=== PATIENT | male | born 1955 | race Caucasian/White ===

== ENCOUNTER 2021-03-28 16:31 | Emergency (ER) | payer MEDICARE, MEDICAID, SELFPAY ==
--- NOTE | ~2021-03-28 | CT_ITS ---
EXAMINATION: CT ABDOMEN AND PELVIS WITH CONTRAST CLINICAL INFORMATION: History of diverticulitis. Lower abdomen tender to palpation. COMPARISON: None TECHNIQUE: Multidetector volumetric images were obtained from the superior aspect of the liver through the pubic symphysis following administration 85 mL of Omnipaque 350 intravenous contrast. Sagittal and coronal reformatted images were obtained on the technologist's workstation. Oral contrast: No This CT examination was performed using dose optimization techniques as appropriate, variously including the following: *Automated exposure control *Adjustment of mA and/or kV according to patient size (this includes techniques or standardized protocols for targeted exams where dose is matched to indication/reason for exam; i.e. extremities or head) *Use of iterative reconstruction technique DLP: 733 mGy-cm FINDINGS: LUNG BASES: Dependent atelectasis in the lung bases. LIVER, GALLBLADDER, AND BILIARY TREE: The liver is normal in size, shape, and attenuation. No intrahepatic biliary ductal dilatation. Some geographic low attenuation along the falciform most likely represents focal fatty change.. The gallbladder is unremarkable with no evidence of radiopaque gallstones, gallbladder wall thickening, or obvious pericholecystic inflammatory changes. PANCREAS: Unremarkable. SPLEEN: Unremarkable. ADRENAL GLANDS: Mild nonspecific thickening of the left adrenal gland KIDNEYS AND URETERS: The kidneys enhance symmetrically. There is a nonobstructing 6 mm calculus and a 3 mm calculus in the midpole of the right kidney. BLADDER: Unremarkable. GASTROINTESTINAL TRACT: The stomach and small bowel are unremarkable. There are acute inflammatory changes within the sigmoid colon associated with inflamed diverticula with wall thickening. No organized fluid collection or free air. No pneumatosis. The appendix is normal ABDOMINAL WALL: Small fat-containing umbilical hernia LYMPH NODES: There are a few scattered subcentimeter retroperitoneal nodes which are nonspecific. VASCULAR: Unremarkable. PELVIC VISCERA: The prostate is enlarged measuring 5.9 cm in maximal transverse diameter. OSSEOUS STRUCTURES: Unremarkable. CT/CT abdomen pelvis w con IMPRESSION: Acute sigmoid diverticulitis. No organized fluid collection or free air. Nonobstructing right-sided renal calculi measuring up to 6 mm. Enlarged prostate
[2021-03-28 16:52] VITALS: BP 121/54; PULSE 91; RESP 18; TEMP 37; O2SAT 98; BMI 33.4
--- NOTE | 2021-03-28 18:00 | ED_ITS ---
HPI - Abdominal Pain General Chief Complaint: Abdominal Pain Stated Complaint: abd pain Time Seen by Provider: 03/28/21 17:49 Source: patient Mode of arrival: ambulatory History of Present Illness HPI narrative: 65-year-old male with a past medical history of asthma, diverticulitis, HTN to the ED complaining of lower abdominal discomfort x4 days with diarrhea and constipation. Admits symptoms are similar to prior diverticulitis. Denies fever, chills, melena/bloody BMs, nausea, vomiting, dysuria/hematuria, testicular/scrotal pain/swelling MD elicited complaint: abdominal pain Related Data Previous Rx's Medication Instructions Recorded levofloxacin 750 mg PO DAILY 7 Days #7 tab 03/28/21 metoclopramide HCl [Reglan] 10 mg PO Q6H PRN #7 tab 03/28/21 metronidazole 500 mg PO Q8H 7 Days #21 tab 03/28/21 Allergies Allergy/AdvReac Type Severity Reaction Status Date / Time aspirin [ASA] Allergy Rash Verified 03/28/21 16:51 naproxen [From Aleve] Allergy Rash Verified 03/28/21 16:51 Review of Systems Review of Systems Constitutional: No Fever, No Chills Cardiovascular: No Chest Pain, No SOB Respiratory: No Cough, No Dyspnea Gastrointestinal: No Nausea, No Vomiting, +Diarrhea, + Constipation, + Abdominal pain Genitourinary: No Dysuria, No Urinary Frequency, No Hematuria, No Flank Pain, No Hesitancy Musculoskeletal: No joint pain, No Myalgias Skin: No Skin Lesions, No rash Neuro: No Weakness, No Numbness, No Headache Yes all other systems are reviewed and are negative Physical Exam Vital Signs: Vital Signs: Last Vital Signs Temp 98.1 F 03/28/21 19:51 Pulse 74 03/28/21 19:51 Resp 18 03/28/21 19:51 BP 102/65 03/28/21 19:51 Pulse Ox 97 03/28/21 19:51 Body Mass Index 33.4 Const: General: cooperative and healthy appearing Orientation/consciousness: patient oriented x3 Limitations: no limitations HENMT: Head: Yes normal to inspection Ears: hearing grossly normal bilaterally General nose exam: Normal external nose present Face and sinus: Yes normal facial exam Eyes: General: appearance normal, both eyes and all related structures EOM: EOMs intact bilaterally Neck: Neck: Yes normal visual inspection Resp: Effort & Inspection: normal respiratory effort Cardio: Rate: regular rate GI: Inspection: Yes normal to inspection Palpation (GI): Soft to palpation, Tenderness to palpation present (GI) (Lower abdomen) in the LLQ and in the RLQ, no guarding and not rigid : General: Yes no CVA tenderness Back/Spine/Pelvis: Back: no CVA tenderness Skin: Rashes: no rashes Wounds: no wounds Neuro: General: patient oriented x3 Gait exam (Neuro): Normal gait present Extrem: General: Yes normal to inspection Course Course Course Narrative: -no leukocytosis, lactic negative, labs otherwise unremarkable -UA negative CT abdomen pelvis w con IMPRESSION: Acute sigmoid diverticulitis. No organized fluid collection or free air. Nonobstructing right-sided renal calculi measuring up to 6 mm. Enlarged prostate >> results discussed with patient and family at bedside. Reports symptomatic improvement after IV medications. Tolerating p.o. without difficulty, 1st dose p.o. Levaquin and Metronidazole given in the ED. Plan to DC home with close PCP follow-up MDM - Abdominal Pain MDM Narrative Medical decision making narrative: 65-year-old male with a past medical history of asthma, diverticulitis, HTN to the ED complaining of lower abdominal discomfort x4 days with diarrhea and constipation. On exam VSS, NAD, well appearing, abdomen soft with lower abdominal ttp >LLQ, no rebound or guarding, no CVAT. Concern for diverticulitis vs appendicitis vs UTI. Lower concern for renal stone, cholecystitis/lithiasis or pancreatitis. Unlikely testicular torsion/epididymitis orchitis Plan: Labs, UA, CT AP, IVF, reassess Lab Data Result diagrams: 03/28/21 18:10 03/28/21 18:10 Labs: Lab Results 03/28/21 03/28/21 03/28/21 Range/Units 18:10 18:10 18:10 WBC 9.9 (4.8-10.8) X10*3/uL RBC 4.50 L (4.60-5.80) X10*6/uL Hgb 14.4 (14.0-18.0) g/dl Hct 43.0 (42-52) % MCV 95.6 (80-98) fL MCH 32.0 (27.0-33.0) pg MCHC 33.5 (31.0-36.0) g/dl RDW 13.1 (11.0-16.0) % Plt Count 306 (160-400) X10*3/uL MPV 9.0 L (9.4-12.4) fL Immature Gran % (Auto) 0.4 (0.0-0.4) % Neut % (Auto) 59.7 (45-73) % Lymph % (Auto) 27.4 (20-40) % [place] % (Auto) 11.0 (2-11) % Eos % (Auto) 1.2 (0-4) % Baso % (Auto) 0.3 (0-2) % Lymph # (Auto) 2.7 (1.2-4.9) X10*3/uL [place] # (Auto) 1.1 (0.1-1.2) X10*3/uL Eos # (Auto) 0.1 (0.0-0.4) X10*3/uL Baso # (Auto) 0.0 (0.0-0.2) X10*3/uL Abs Immat Gran (auto) 0.04 H (0.00-0.03) X10*3/uL Absolute Neuts (auto) 5.9 (2.0-8.3) X10*3/uL Absolute Nucleated RBC 0.000 (0.0-0.012) X10*3/uL Nucleated RBC % (auto) 0.0 (0.0-0.2) /100WBC PT 16.4 H (10.8-13.0) SEC INR 1.4 H (0.9-1.1) APTT 33.6 (24.1-38.0) SEC Sodium 139 (135-145) mmol/L Potassium 3.9 (3.3-5.1) mmol/L Chloride 102 (96-108) mmol/L Carbon Dioxide 29 (22-29) mmol/L Anion Gap 12 (12-20) BUN 17 H (9-16) mg/dL Creatinine 0.87 (0.5-1.4) mg/dL Estim Creat Clear Calc 88.3 Estimated GFR > 60 Random Glucose 115 (60-115) mg/dL Lactic Acid (0.5-2.0) mmol/L Calcium 9.4 (8.4-10.2) mg/dL Magnesium 2.4 (1.6-2.6) mg/dL Total Bilirubin 0.4 (0.0-1.0) mg/dL Direct Bilirubin 0.2 (0.0-0.5) mg/dL AST 11 (5-37) U/L ALT 14 (0-40) U/L Alkaline Phosphatase 74 (39-117) U/L Total Protein 7.8 (6.5-8.0) g/dL Albumin 4.2 (3.5-5.0) g/dL Lipase 23 (8-78) U/L Urine Color Urine Appearance Urine pH (5.0-8.0) Ur Specific [place] (1.005-1.025) Urine Protein (NEG-TRACE) MG/DL Urine Glucose (UA) (NEG) MG/DL Urine Ketones (NEG) MG/DL Urine Blood (NEG) Urine Nitrite (NEG) Ur Leukocyte Esterase (NEG) Urine RBC (0) /HPF Urine WBC (0-4) /HPF Ur Squamous Epith Cells /LPF Urine Bacteria /LPF 03/28/21 03/28/21 Range/Units 18:10 18:10 WBC (4.8-10.8) X10*3/uL RBC (4.60-5.80) X10*6/uL Hgb (14.0-18.0) g/dl Hct (42-52) % MCV (80-98) fL MCH (27.0-33.0) pg MCHC (31.0-36.0) g/dl RDW (11.0-16.0) % Plt Count (160-400) X10*3/uL MPV (9.4-12.4) fL Immature Gran % (Auto) (0.0-0.4) % Neut % (Auto) (45-73) % Lymph % (Auto) (20-40) % [place] % (Auto) (2-11) % Eos % (Auto) (0-4) % Baso % (Auto) (0-2) % Lymph # (Auto) (1.2-4.9) X10*3/uL [place] # (Auto) (0.1-1.2) X10*3/uL Eos # (Auto) (0.0-0.4) X10*3/uL Baso # (Auto) (0.0-0.2) X10*3/uL Abs Immat Gran (auto) (0.00-0.03) X10*3/uL Absolute Neuts (auto) (2.0-8.3) X10*3/uL Absolute Nucleated RBC (0.0-0.012) X10*3/uL Nucleated RBC % (auto) (0.0-0.2) /100WBC PT (10.8-13.0) SEC INR (0.9-1.1) APTT (24.1-38.0) SEC Sodium (135-145) mmol/L Potassium (3.3-5.1) mmol/L Chloride (96-108) mmol/L Carbon Dioxide (22-29) mmol/L Anion Gap (12-20) BUN (9-16) mg/dL Creatinine (0.5-1.4) mg/dL Estim Creat Clear Calc Estimated GFR Random Glucose (60-115) mg/dL Lactic Acid 0.7 (0.5-2.0) mmol/L Calcium (8.4-10.2) mg/dL Magnesium (1.6-2.6) mg/dL Total Bilirubin (0.0-1.0) mg/dL Direct Bilirubin (0.0-0.5) mg/dL AST (5-37) U/L ALT (0-40) U/L Alkaline Phosphatase (39-117) U/L Total Protein (6.5-8.0) g/dL Albumin (3.5-5.0) g/dL Lipase (8-78) U/L Urine Color YELLOW Urine Appearance CLEAR Urine pH 5.5 (5.0-8.0) Ur Specific [place] 1.025 (1.005-1.025) Urine Protein NEG (NEG-TRACE) MG/DL Urine Glucose (UA) NEG (NEG) MG/DL Urine Ketones NEG (NEG) MG/DL Urine Blood 1+ H (NEG) Urine Nitrite NEG (NEG) Ur Leukocyte Esterase NEG (NEG) Urine RBC 0 (0) /HPF Urine WBC 0 (0-4) /HPF Ur Squamous Epith Cells NONE /LPF Urine Bacteria NONE /LPF Discharge Plan Discharge Clinical Impression: Diverticulitis Patient Disposition: Home, Self-Care Instructions: Diverticulitis (ED), Diverticulitis Diet (ED) Additional Instructions: You have diverticulitis. Levaquin and metronidazole are antibiotics, take as prescribed. Practice a clear liquid diet for the next 24 hours. Make sure your in taking plenty of fluids. Follow up with her doctor. If her pain persists or worsens, becomes unbearable, you are unable to eat or drink, or have persistent nausea/vomiting return to the ED Reglan as antinausea medication, take as needed Tiene diverticulitis. Levaquin y metronidazol son antibi?ticos, t?melos seg?n lo prescrito. Practique ag dieta de l?quidos azra jabari las pr?ximas 24 horas. Aseg?rese de karina muchos l?quidos. Edilia un seguimiento con regalado m?dico. Si regalado dolor persiste o empeora, se vuelve insoportable, no puede comer ni beber, o tiene n?useas / v?mitos persistentes, regrese al servicio de urgencias Reglan luis medicamento contra las n?useas, t?almendarez seg?n sea necesario Prescriptions: New levofloxacin 750 mg tablet 750 mg PO DAILY 7 Days Qty: 7 RF: 0 metronidazole 500 mg tablet 500 mg PO Q8H 7 Days Qty: 21 RF: 0 metoclopramide HCl [Reglan] 10 mg tablet 10 mg PO Q6H PRN (Reason: nausea and vomiting) Qty: 7 RF: 0 Referrals: Physician,Unknown [Primary Care Provider] - 2 days Print Language: [place]ar[place]uan REPLACED BY [facility] Past Medical History Attestation statement: The following information was validated with the patient. Medical History (Updated 03/28/21 @ 20:12 by AVERY Stearns) Asthma Diverticulitis HTN (hypertension) Social History Social History Alcohol intake: never Smoking Status: Never smoker Use of substances other than those prescribed or required for medical reasons: No Advance Directives: No Advance Directives Information Provided: No
[2021-03-28] MEDS: 0.9 % Sodium Chloride 1,000 ML 999 ML IVCONT (18:13)
[2021-03-28 18:18] LABS: MANUAL DIFF FLAG NO
[2021-03-28 18:25] LABS: Glucose Urine UA NEG (NEG); INTERNATIONAL NORM RATIO 1.4 (0.9-1.1); Leukocyte Esterase Urine NEG (NEG); Nitrite Urine NEG (NEG); PH 5.5 (5.0-8.0); Prothrombin Time 16.4 SEC (10.8-13.0); Specific Gravity - Urine 1.025 (1.005-1.025); Urine Blood 1+ (NEG); Urine Ketones NEG (NEG); Urine Protein NEG (NEG-TRACE)
[2021-03-28 18:26] LABS: Basophils Percent Auto 0.3 % (0-2); Color Urine YELLOW; Eosinophils Absolute Auto 0.1 X10*3/uL (0.0-0.4); Eosinophils Percent Auto 1.2 % (0-4); Hemoglobin 14.4 g/dl (14.0-18.0); Imm Gran Abs Auto 0.04 X10*3/uL (0.00-0.03); Imm Gran Pct Auto 0.4 % (0.0-0.4); Lymphocytes Absolute Auto 2.7 X10*3/uL (1.2-4.9); Lymphocytes Percent Auto 27.4 % (20-40); Mean Corpuscular HGB Conc 33.5 g/dl (31.0-36.0); Mean Corpuscular Volume 95.6 fL (80-98); Monocytes Absolute Auto 1.1 X10*3/uL (0.1-1.2); Neutrophils Absolute Auto 5.9 X10*3/uL (2.0-8.3); Neutrophils Percent Auto 59.7 % (45-73); Platelet Count 306 X10*3/uL (160-400); Red Cell Distribution Width 13.1 % (11.0-16.0); White Blood Count 9.9 X10*3/uL (4.8-10.8)
[2021-03-28] MEDS: ondansetron HCL 4 MG/2 ML VIAL IVPUSH (18:26)
[2021-03-28] MEDS: Acetaminophen 325 MG TABLET 650 MG PO (18:26)
[2021-03-28 18:27] VITALS: RESP 16
[2021-03-28 18:27] LABS: Appearance Urine CLEAR
[2021-03-28] MEDS: Morphine Sulfate 2 MG/ML CARTRIDGE IVPUSH (18:27)
[2021-03-28 18:28] LABS: Partial Thromboplastin Time 33.6 SEC (24.1-38.0)
[2021-03-28 18:32] LABS: RBC Urine 0 /HPF (0); WBC Urine 0 /HPF (0-4)
[2021-03-28 18:43] LABS: Lactic Acid 0.7 mmol/L (0.5-2.0)
[2021-03-28 18:49] LABS: Alanine Aminotransferase 14 U/L (0-40); Albumin Level 4.2 g/dL (3.5-5.0); Alkaline Phosphatase 74 U/L (39-117); Anion Gap 12 (12-20); Aspartate Amino Transferase 11 U/L (5-37); Bilirubin Direct 0.2 mg/dL (0.0-0.5); Bilirubin Total 0.4 mg/dL (0.0-1.0); Blood Urea Nitrogen 17 mg/dL (9-16); Calcium 9.4 mg/dL (8.4-10.2); Carbon Dioxide 29 mmol/L (22-29); Chloride 102 mmol/L (96-108); Creatinine Clr Calc Pharmacy 88.3; Estimated Glomerular Filt Rate > 60; Glucose Random 115 mg/dL (60-115); Lipase 23 U/L (8-78); Magnesium 2.4 mg/dL (1.6-2.6); Potassium 3.9 mmol/L (3.3-5.1); Sodium 139 mmol/L (135-145); Total Protein 7.8 g/dL (6.5-8.0)
[2021-03-28] MEDS: iohexoL 350 MG/ML 100 ML INFUS..BTL IV (19:39)
[2021-03-28 19:51] VITALS: BP 102/65; PULSE 74; RESP 18; TEMP 36.7; O2SAT 97
[2021-03-28] MEDS: metroNIDAZOLE 500 MG TABLET PO (20:20)
[2021-03-28] MEDS: levoFLOXacin 750 MG TABLET PO (20:20)
== END 2021-03-28 20:27 | disposition home or self-care (01) ==
PROVIDERS: Physician Assistant; Emergency Provider Internal Medicine
DX: K57.32 Diverticulitis of large intestine without perforation or abscess without bleeding (principal); I10 Essential (primary) hypertension; J45.909 Unspecified asthma, uncomplicated
CPT/HCPCS: 36415; 74177; 80048; 80076; 81001; 83605; 83690; 83735; 85025; 85610; 85730; 96361; 96374; 96375; 99284; J2270; J2405; Q9967

== ENCOUNTER 2022-01-10 10:17 | Outpatient (REF) | payer MEDICARE, MEDICAID, SELFPAY ==
--- NOTE | ~2022-01-10 | MR_ITS ---
EXAMINATION: MRI OF THE BRAIN WITHOUT CONTRAST CLINICAL INFORMATION: Memory loss and cognitive impairment. COMPARISON: There are no prior studies available comparison. TECHNIQUE: MRI of the brain was obtained using routine sequences without contrast. FINDINGS: No diffusion abnormalities are identified to suggest an acute or subacute infarct. No mass effect or midline shift is seen. There is mild commensurate prominence of the ventricles and sulci. There are a few scattered foci of hyperintense T2 and FLAIR signal in the white matter, which are most consistent with mild chronic microvascular ischemic changes. No extra-axial fluid collections are seen. The brainstem and cerebellum are normal. No pathologic magnetic susceptibility artifact is identified on the gradient refocused acquisition. The craniovertebral junction and marrow signal are normal. There is a partially empty sella. The major intracranial flow-voids at the level of the [place] are preserved. The dural venous sinus flow-voids are maintained. There are multiple small lymph nodes in the parotid glands. The mastoid air cells are well-aerated. There is a fluid level in the left sphenoid sinus. There is mild mucoperiosteal thickening in the inferior left maxillary sinus and there is opacification in the left middle meatus, bilateral anterior ethmoid air cells and bilateral frontal sinuses. MR/MR head/brain wo con IMPRESSION: 1. There are no acute bleeds or territorial infarcts. No masses are demonstrated. 2. There are chronic microvascular ischemic changes and there is diffuse volume loss. 3. There is opacification of multiple paranasal sinuses, with a fluid level in the left sphenoid sinus.
== END 2022-01-10 10:18 | disposition home or self-care (01) ==
LOC: HO.MRI 10:17
PROVIDERS: Visit Provider Psychiatry & Neurology Neurology
DX: G30.9 Alzheimer's disease, unspecified (principal)
CPT/HCPCS: 70551

== ENCOUNTER 2023-01-08 11:47 | Outpatient (REF) | payer MEDICARE, MEDICAID, SELFPAY ==
[2023-01-08 13:19] LABS: Vitamin B12 355 pg/mL (200-900)
== END 2023-01-08 11:48 | disposition home or self-care (01) ==
LOC: HO.LAB 11:47
PROVIDERS: PCP Internal Medicine; Visit Provider Psychiatry & Neurology Neurology
DX: G30.9 Alzheimer's disease, unspecified (principal)
CPT/HCPCS: 36415; 82607

== ENCOUNTER 2024-06-08 23:11 | Emergency (ER) | payer MEDICARE, MEDICAID, SELFPAY ==
--- NOTE | ~2024-06-08 | CT_ITS ---
EXAMINATION: CT ABDOMEN AND PELVIS WITHOUT CONTRAST CLINICAL INFORMATION: Right flank pain. COMPARISON: 03/28/2021 TECHNIQUE: Multidetector volumetric imaging was performed from the superior aspect of the liver through the pubic symphysis. Sagittal and coronal reformatted images were obtained on the technologist's workstation. This CT examination was performed using dose optimization techniques as appropriate, variously including the following: *Automated exposure control *Adjustment of mA and/or kV according to patient size (this includes techniques or standardized protocols for targeted exams where dose is matched to indication/reason for exam; i.e. extremities or head) *Use of iterative reconstruction technique DLP: 1084 mGy-cm FINDINGS: LUNG BASES: The visualized lung bases are unremarkable. LIVER, GALLBLADDER, AND BILIARY TREE: The liver is of diminished attenuation. No focal liver lesions are seen. There is no intrahepatic biliary duct dilatation. The gallbladder is unremarkable with no evidence of radiopaque gallstones, gallbladder wall thickening, or obvious pericholecystic inflammatory changes. PANCREAS: Unremarkable. SPLEEN: Unremarkable. ADRENAL GLANDS: There is bilateral adrenal gland thickening and nodularity. KIDNEYS AND URETERS: The kidneys are normal in size, shape, and attenuation. There are scattered bilateral renal calculi measuring up to 7 mm upper pole right kidney. There is mild right hydronephrosis and proximal right hydroureter to the level of a 5 mm proximal right ureteric calculus. BLADDER: Unremarkable. GASTROINTESTINAL TRACT: There is diffuse diverticulosis without evidence for diverticulitis. The appendix is visualized and is within normal limits. ABDOMINAL WALL: There is a small umbilical hernia containing fat. LYMPH NODES: Normal. VASCULAR: Unremarkable. PELVIC VISCERA: Prostate gland hypertrophy. OSSEOUS STRUCTURES: Unremarkable. CT/CT abdomen pelvis wo IV con IMPRESSION: 1. Mild right hydronephrosis and proximal right hydroureter to the level of a 5 mm proximal right ureteric calculus. 2. Bilateral nephrolithiasis. 3. Diverticulosis without evidence of diverticulitis. 4. Hepatic steatosis. 5. Bilateral adrenal gland thickening and nodularity. Fleischner guidelines were followed.
[2024-06-08 23:24] VITALS: BP 135/70; PULSE 86; RESP 16; TEMP 36.9; O2SAT 95; BMI 37.3
[2024-06-08 23:46] LABS: Appearance Urine Clear; Color Urine Yellow; Glucose Urine UA Negative (Negative); Leukocyte Esterase Urine Negative (Negative); Nitrite Urine Negative (Negative); PH 5.5 (5.0-9.0); Specific Gravity - Urine 1.015 (1.005-1.025); UMIC TRIGGER UACC YES; Urine Blood Small (1+) (Negative); Urine Ketones Negative (Negative); Urine Protein Negative (Neg-Trace)
--- NOTE | 2024-06-08 23:48 | ED.ABDPAIN ---
HPI - Abdominal Pain General Chief Complaint: Abdominal Pain Stated Complaint: Kidney Pain Time Seen by Provider: 06/08/24 23:47 Source: patient and old records reviewed Mode of arrival: ambulatory Limitations: no limitations History of Present Illness ED Provider: NOE BOOTHE narrative: 69 yo male with PMH of HTN, asthma, diverticulitis presents with c/o 2 days of R flank pain radiating to R groin with nausea but no vomiting. Denies diarrhea or dysuria - tried motrin but no relief. Has not had fever. Has remote hx of stones. MD elicited complaint: flank pain Pertinent past history: kidney stones Onset (ago): day(s) (2) Pain Consistency: intermittent Location: R flank Severity: moderate Quality: stabbing Radiation: none Migration to: no migration Exacerbating factors: nothing Relieving factors: nothing Context: history of similar episodes Associated symptoms: nausea Treatments prior to arrival: NSAIDs Related Data Previous Rx's ?Medication ?Instructions ?Recorded levofloxacin 750 mg tablet 750 mg PO DAILY 7 days #7 tabs 03/28/21 metoclopramide HCl 10 mg tablet 10 mg PO Q6H PRN nausea and 03/28/21 (Reglan) vomiting #7 tabs metronidazole 500 mg tablet 500 mg PO Q8H 7 days #21 tabs 03/28/21 ondansetron 4 mg disintegrating 4 mg PO Q8H PRN nausea and 06/09/24 tablet vomiting #20 tabs oxycodone 10 mg tablet 10 mg PO Q6H PRN pain #14 tabs 06/09/24 prednisone 20 mg tablet 20 mg PO DAILY 3 days #3 tabs 06/09/24 tamsulosin 0.4 mg capsule 0.4 mg PO DAILY 7 days #7 caps 06/09/24 Allergies Allergy/AdvReac Type Severity Reaction Status Date / Time aspirin [ASA] Allergy Rash Verified 06/08/24 23:27 naproxen [From Aleve] Allergy Rash Verified 06/08/24 23:27 Review of Systems Review of Systems Constitutional : No Weight loss, No Fever, No Chills ENT/Mouth : No sore throat, No Rhinorrhea Eyes: No Swelling, No Redness Cardiovascular : No Chest Pain, No SOB, NoEdema Respiratory : No Cough, No Sputum, No Wheezing Gastrointestinal : Positive Nausea, no Vomiting, no Diarrhea, positive abdominal Pain, No Hematochezia, No Melena Genitourinary : No Dysuria, No Urinary Frequency, No Hematuria, No Urgency Musculoskeletal : No joint pain, No Myalgias, No Joint Swelling Skin : No Skin Lesions, No rash Neuro : No Weakness, No Numbness, No Dizziness, No Headache Psych : No Anxiety/Panic, No Depression All other systems reviewed and are negative. [facility] Past Medical History Attestation statement: The following information was validated with the patient. Source: old records reviewed Medical History Asthma HTN (hypertension) Diverticulitis Social History Social History (Updated 06/08/24 @ 23:48 by Julia Keen DO) Alcohol intake: never Patient Tobacco Use Status: Tobacco use Unknown Smoked in Last 30 Days: No Use of substances other than those prescribed or required for medical reasons: No Advance Directives: No Advance Directives Information Provided: Yes Physical Exam ED Vital Signs: Vital Signs - 24 hr 06/08/24 23:24 06/09/24 02:24 Temperature 98.4 F 98.1 F Pulse Rate 86 78 Respiratory Rate 16 16 Blood Pressure 135/70 133/66 Pulse Oximetry 95 97 Oxygen Delivery Method Room Air Room Air BMI result Body Mass Index 37.3 Appearance: Alert. Oriented X3. No acute distress. Eyes: Pupils equal, round and reactive to light. ENT: Pharynx normal. Neck: Normal inspection. Neck supple. CVS: Normal heart rate and rhythm. Pulses normal. Respiratory: No respiratory distress. Breath sounds normal. Abdomen: Soft and non-tender. Mild R CVA ttp Skin: Skin warm and dry. Normal skin color. Extremities: No lower extremity edema. Neuro: Oriented X 3. No motor deficit. No sensory deficit. Course Course Course Narrative: still in pain IV dilaudid ordered Medical Decision Making Medical Decision Making [facility] Narrative: 69 yo male with PMH of HTN, asthma, diverticulitis presents with c/o R flank pain and nausea has remote hx of stones denies vomiting, fevers, diarrhea at this time labs, CT scan, PO morphine for pain Differential Diagnosis Differential Diagnoses: The differential diagnosis associated with the presentation includes UTI, stones, MSK pain Admission/Observation Consideration of admission/observation: Escalation of care including admission/observation considered pain improved he feels better he and asking to go home Cr normal no vomiting no UTI will start on meds and refer to urology Lab Data MDM Lab Attestation statement: I reviewed the patient's lab results. 06/08/24 23:57 06/08/24 23:57 Labs: Lab Results 06/08/24 06/08/24 Range/Units 23:33 23:57 WBC 11.7 H (4.8-10.8) X10*3/uL RBC 4.45 L (4.60-5.80) X10*6/uL Hgb 14.4 (14.0-18.0) g/dl Hct 42.0 (42.0-52.0) % MCV 94.4 (80.0-98.0) fL MCH 32.4 (27.0-33.0) pg MCHC 34.3 (31.0-36.0) g/dl RDW 13.2 (11.0-16.0) % Plt Count 266 (160-400) X10*3/uL MPV 8.9 L (9.4-12.4) fL Immature Gran % (Auto) 0.3 (0.0-0.4) % Neut % (Auto) 66.0 (45-73) % Lymph % (Auto) 22.8 (20-40) % [place] % (Auto) 9.2 (2-11) % Eos % (Auto) 1.4 (0-4) % Baso % (Auto) 0.3 (0-2) % Lymph # (Auto) 2.7 (1.2-4.9) X10*3/uL [place] # (Auto) 1.1 (0.1-1.2) X10*3/uL Eos # (Auto) 0.2 (0.0-0.4) X10*3/uL Baso # (Auto) 0.0 (0.0-0.2) X10*3/uL Abs Immat Gran (auto) 0.03 (0.00-0.03) X10*3/uL Absolute Neuts (auto) 7.8 (2.0-8.3) x10*3/uL Absolute Nucleated RBC 0.000 (0.0-0.012) X10*3/uL Nucleated RBC % (auto) 0.0 (0.0-0.2) /100WBC Sodium 138 (135-145) mmol/L Potassium 4.5 (3.3-5.1) mmol/L Chloride 106 (96-108) mmol/L Carbon Dioxide 20 L (22-29) mmol/L Anion Gap 17 (12-20) BUN 26 H (9-16) mg/dL Creatinine 1.32 (0.5-1.4) mg/dL Estim Creat Clear Calc 62.0 Estimated GFR 53 Random Glucose 139 H (60-115) mg/dL Calcium 10.2 D (8.4-10.2) mg/dL Total Bilirubin 0.3 (0.0-1.0) mg/dL AST 18 (5-37) U/L ALT 25 (0-40) U/L Alkaline Phosphatase 71 (39-117) U/L Total Protein 7.7 (6.5-8.0) g/dL Albumin 4.1 (3.5-5.0) g/dL Urine Color Yellow Urine Appearance Clear Urine pH 5.5 (5.0-9.0) Ur Specific [place] 1.015 (1.005-1.025) Urine Protein Negative (Neg-Trace) mg/dL Urine Glucose (UA) Negative (Negative) mg/dL Urine Ketones Negative (Negative) mg/dL Urine Blood Small (1+) H (Negative) Urine Nitrite Negative (Negative) Ur Leukocyte Esterase Negative (Negative) Urine RBC 0-2 (0-2) /HPF Urine WBC 0-5 (0-5) /HPF Ur Squamous Epith Cells 0-2 (0-2) /HPF Urine Bacteria None Seen (None Seen) Hyaline Casts 0-2 (0-2) /LPF Independent Interpretation I performed an independent interpretation of an: CT Scan (mild hydro 5mm prox stone) Radiology Impression Discussion of test interpretation with radiology: I have reviewed the radiologist's reading. Independent Historian Clinical information obtained from an independent historian. History obtained from or confirmed by: Spouse External Record Review External record reviewed: Inpatient record Prescription Management I considered prescription management with: Pain Medication and Other Medications Administered Discontinued Medications Generic Name Dose Route Start Last Admin Trade Name Freq PRN Reason Stop Dose Admin Hydromorphone HCl 1 mg 06/09/24 02:20 06/09/24 02:43 Hydromorphone Hcl 1 Mg/Ml Syringe IVPUSH 07/22/24 02:21 1 mg ONCE ONE Administration Protocol Morphine Sulfate 15 mg 06/08/24 23:52 06/09/24 00:08 Morphine Sulfate Immed Release 15 Mg Tablet PO 06/08/24 23:53 15 mg ONCE ONE Administration Ondansetron HCl 4 mg 06/08/24 23:52 06/09/24 00:08 Ondansetron Odt 4 Mg Tab.Yendis TRANSLINGU 06/08/24 23:53 4 mg ONCE ONE Administration Critical Care Time Critical Care Time Critical Care Time: Yes Total Critical Care Time: 35 Attestation: pain improved with IV morphine, patient is feeling better I attest to this time spent taking care of the patient Discharge Plan Discharge Clinical Impression: Ureterolithiasis Patient Disposition: Home, Self-Care Instructions: Ureteral Stones (ED) Additional Instructions: return for worsening pain, fevers, vomiting, inability to urinate or any other concerns follow up and call the Urologist listed below to schedule appointment in case you do not pass this Prescriptions: New prednisone 20 mg tablet 20 mg PO DAILY 3 Days Qty: 3 0RF tamsulosin 0.4 mg capsule 0.4 mg PO DAILY 7 Days Qty: 7 0RF ondansetron 4 mg tablet,disintegrating 4 mg PO Q8H PRN (Reason: nausea and vomiting) Qty: 20 0RF oxycodone 10 mg tablet 10 mg PO Q6H PRN (Reason: pain) Qty: 14 0RF Rx Instructions: Partial Fill upon patient request. No Action levofloxacin 750 mg tablet 750 mg PO DAILY 7 Days Qty: 7 0RF metronidazole 500 mg tablet 500 mg PO Q8H 7 Days Qty: 21 0RF metoclopramide HCl [Reglan] 10 mg tablet 10 mg PO Q6H PRN (Reason: nausea and vomiting) Qty: 7 0RF Referrals: Eloise Christine MD [Physician] - Print Language: R[place]
[2024-06-09] LABS: Bacteria Urine None Seen (None Seen); Hyaline Casts Urine 0-2 /LPF (0-2); RBC Urine 0-2 /HPF (0-2); Squamous Epithelial Cell Urine 0-2 /HPF (0-2); WBC Urine 0-5 /HPF (0-5)
[2024-06-09 00:02] LABS: Basophils Percent Auto 0.3 % (0-2); Eosinophils Absolute Auto 0.2 X10*3/uL (0.0-0.4); Eosinophils Percent Auto 1.4 % (0-4); Hemoglobin 14.4 g/dl (14.0-18.0); Imm Gran Abs Auto 0.03 X10*3/uL (0.00-0.03); Imm Gran Pct Auto 0.3 % (0.0-0.4); Lymphocytes Absolute Auto 2.7 X10*3/uL (1.2-4.9); Lymphocytes Percent Auto 22.8 % (20-40); MANUAL DIFF FLAG NO; Mean Corpuscular HGB Conc 34.3 g/dl (31.0-36.0); Mean Corpuscular Hemoglobin 32.4 pg (27.0-33.0); Mean Corpuscular Volume 94.4 fL (80.0-98.0); Mean Platelet Volume 8.9 fL (9.4-12.4); Monocytes Absolute Auto 1.1 X10*3/uL (0.1-1.2); Monocytes Percent Auto 9.2 % (2-11); Neutrophils Absolute Auto 7.8 x10*3/uL (2.0-8.3); Platelet Count 266 X10*3/uL (160-400); Red Blood Count 4.45 X10*6/uL (4.60-5.80); Red Cell Distribution Width 13.2 % (11.0-16.0); White Blood Count 11.7 X10*3/uL (4.8-10.8)
[2024-06-09] MEDS: Morphine Sulfate Immed Release 15 MG TABLET PO (00:08)
[2024-06-09] MEDS: Ondansetron ODT 4 MG TAB.RAPDIS TRANSLINGU (00:08)
[2024-06-09 00:19] LABS: Alanine Aminotransferase 25 U/L (0-40); Albumin Level 4.1 g/dL (3.5-5.0); Alkaline Phosphatase 71 U/L (39-117); Anion Gap 17 (12-20); Aspartate Amino Transferase 18 U/L (5-37); Bilirubin Total 0.3 mg/dL (0.0-1.0); Blood Urea Nitrogen 26 mg/dL (9-16); Calcium 10.2 mg/dL (8.4-10.2); Carbon Dioxide 20 mmol/L (22-29); Chloride 106 mmol/L (96-108); Estimated Glomerular Filt Rate 53; Glucose Random 139 mg/dL (60-115); Potassium 4.5 mmol/L (3.3-5.1); Sodium 138 mmol/L (135-145); Total Protein 7.7 g/dL (6.5-8.0)
[2024-06-09 02:24] VITALS: BP 133/66; PULSE 78; RESP 16; TEMP 36.7; O2SAT 97
[2024-06-09] MEDS: HYDROmorphone HCl 1 MG/ML SYRINGE IVPUSH (02:43)
[2024-06-09] MEDS: Tamsulosin HCL 0.4 MG CAPSULE PO (03:21)
[2024-06-09 03:26] VITALS: BP 128/62; PULSE 72; RESP 16; TEMP 36.7; O2SAT 97
== END 2024-06-09 03:28 | disposition home or self-care (01) ==
PROVIDERS: Emergency Provider Emergency Medicine; PCP Internal Medicine
DX: N20.1 Calculus of ureter (principal); R30.0 Dysuria; Z79.899 Other long term (current) drug therapy
CPT/HCPCS: 36415; 74176; 80053; 81001; 85025; 99284; J1170

== ENCOUNTER 2024-07-24 15:27 | Outpatient (AMB) | payer OTHER, MEDICAID, SELFPAY ==
--- NOTE | 2024-07-24 15:29 | A.OFFVIS_ITS ---
Intake Visit Reasons: bilateral nephrolithiasis Intake Note: New Patient presents for initial visit for nephrolithiasis Urology Medications: none Blood Thinner:none Sander Wooden Pencils Required: Yes Accompanied by: Unknown Allergies aspirin [ASA] Allergy (Verified 07/24/24 16:00) Rash naproxen [From Aleve] Allergy (Verified 07/24/24 16:00) Rash Medication List - Last Reconciled 07/24/24 by MAX Faust lisinopril 10 mg PO DAILY sertraline 25 mg PO DAILY HPI Comments Details: Sherman is a very pleasant 69-year-old Macedonian-speaking male patient of Dr. Mcfadden who was accompanied by his at today's office visit. He has a past medical history of asthma, hypertension, and diverticulitis. kami presents to the office today as a new patient for nephrolithiasis. In discussion with the patient today reports having seeked emergency room care in May for ongoing righ t-sided flank pain he had been experiencing at which time a CT of the abdomen was ordered and performed. These results reviewed with the patient today. The kidneys are normal in size, shape, and attenuation. There are scattered bilateral renal calculi measuring up to 7 mm in the upper pole of the right kidney. There is mild right hydro nephrosis and proximal right hydroureter to the level of 5 mm proximal right ureteric calculus. The bladder is unremarkable. In discussion with the patient today he reports flank pain he had been experiencing has since subsided. He believes passing his stone as he did see fragments when urinating however he did not collect stone for stone analysis. He does report a longstanding history of nephrolithiasis since he was a teenager. However, never requiring surgical intervention. We discussed at length potential causes of nephrolithiasis. Discussed further metabolic workup to include 24 hour urine collection and labs. In office urinalysis results reviewed with the patient today. He otherwise denies urinary urgency, urinary frequency, incontinence, nocturia, hematuria, dysuria, foul smelling urine, changes to urinary stream, flank pain, fever, and or chills. He is happy with his current voiding parameters. [facility] Medical History Asthma HTN (hypertension) Diverticulitis Social History Alcohol intake: never Patient Tobacco Use Status: Tobacco use Unknown Review of Systems Const All systems reviewed & are unremarkable except as noted in HPI and below Physical Exam Const General: cooperative, comfortable, no acute distress, well developed, alert and awake Orientation/consciousness: patient oriented x3 HEENT Head: Yes normal to inspection, Yes normocephalic and Yes atraumatic Ears: hearing grossly normal bilaterally Eyes General: appearance normal, both eyes and all related structures Neck Neck: Yes normal visual inspection and Yes trachea midline Chest Chest palpation & inspection: normal inspection of the chest Resp Effort & Inspection: normal respiratory effort and able to speak in complete sentences Cardio Rate: regular rate GI Inspection: Yes normal to inspection General: Yes no CVA tenderness Back/Spine/Pelvis Back: no CVA tenderness Skin General skin exam: no rashes or lesions noted Neuro General: patient oriented x3 Extrem General: Yes normal to inspection Psych Appearance: grossly normal and well kempt Mental Status: mental status grossly normal Speech and movement: Normal speech and movement present and Clear speech present Affect: normal affect Attitude: cooperative Thought process: Normal thought process present Thought content: Normal thought content present Insight: Fair insight present (Psych) Judgement: Fair judgement present (Psych) Results AMB Urinalysis, Automated UA Leukoctes 0 Tomás/uL Last Edit by [employer] on 07/24/24 15:49 UA Nitrite Last Edit by [employer] on 07/24/24 15:49 UA Urobilinogen 0.2 mg/dL Last Edit by [employer] on 07/24/24 15:49 UA Protein 0 mg/dL Last Edit by [employer] on 07/24/24 15:49 UA pH 6.0 Last Edit by [employer] on 07/24/24 15:49 UA Blood 0 Jose/uL Last Edit by [employer] on 07/24/24 15:49 UA Specific [place] 1.025 Last Edit by [employer] on 07/24/24 15:49 UA Ketone Negative Last Edit by [employer] on 07/24/24 15:49 UA Bilirubin 0 mg/dL Last Edit by [employer] on 07/24/24 15:49 UA Glucose 0 mg/dL Last Edit by [employer] on 07/24/24 15:49 Results Reviewed Results Reviewed: Laboratory Last Values Urine pH (Auto) 6.0 07/24/24 15:40 Specific [place] (Auto) 1.025 07/24/24 15:40 Urine Protein (Auto) 0 mg/dL 07/24/24 15:40 Glucose (UA)(Auto) 0 mg/dL 07/24/24 15:40 Urine Ketones (Auto) Negative 07/24/24 15:40 Urine Blood (Auto) 0 Jose/uL 07/24/24 15:40 Urine Bilirubin (Auto) 0 mg/dL 07/24/24 15:40 Urine Urobilinogen (Auto) 0.2 mg/dL 07/24/24 15:40 Leukocyte Esterase (Auto) 0 Tomás/uL 07/24/24 15:40 Date of Service: 06/08/24 EXAMINATION: CT ABDOMEN AND PELVIS WITHOUT CONTRAST FINDINGS: LUNG BASES: The visualized lung bases are unremarkable. LIVER, GALLBLADDER, AND BILIARY TREE: The liver is of diminished attenuation. No focal liver lesions are seen. There is no intrahepatic biliary duct dilatation. The gallbladder is unremarkable with no evidence of radiopaque gallstones, gallbladder wall thickening, or obvious pericholecystic inflammatory changes. PANCREAS: Unremarkable. SPLEEN: Unremarkable. ADRENAL GLANDS: There is bilateral adrenal gland thickening and nodularity. KIDNEYS AND URETERS: The kidneys are normal in size, shape, and attenuation. There are scattered bilateral renal calculi measuring up to 7 mm upper pole right kidney. There is mild right hydronephrosis and proximal right hydroureter to the level of a 5 mm proximal right ureteric calculus. BLADDER: Unremarkable. GASTROINTESTINAL TRACT: There is diffuse diverticulosis without evidence for diverticulitis. The appendix is visualized and is within normal limits. ABDOMINAL WALL: There is a small umbilical hernia containing fat. LYMPH NODES: Normal. VASCULAR: Unremarkable. PELVIC VISCERA: Prostate gland hypertrophy. OSSEOUS STRUCTURES: Unremarkable. IMPRESSION: 1. Mild right hydronephrosis and proximal right hydroureter to the level of a 5 mm proximal right ureteric calculus. 2. Bilateral nephrolithiasis. 3. Diverticulosis without evidence of diverticulitis. 4. Hepatic steatosis. 5. Bilateral adrenal gland thickening and nodularity. Assessment & Plan Assessment & Plan (1) Nephrolithiasis: Code(s): N20.0 - Calculus of kidney Category: Medical (2) Hydronephrosis concurrent with and due to calculi of kidney and ureter: Code(s): N13.2 - Hydronephrosis with renal and ureteral calculous obstruction Category: Medical Plan In office urinalysis results reviewed with the patient today; as noted above. Recent CT results reviewed with the patient today; as noted above. Discussed further metabolic workup to include 24 hour urine collection and labs. Discussed, educated, and stressed the importance of adequate hydration relation to nephrolithiasis as well as overall health and well-being. Discussed adding 1 oz of lemon juice to water daily. Will obtain renal ultrasound to ensure resolution of hydronephrosis. Patient currently denies any bothersome urinary issues or concerns. He reports be happy with current voiding parameters. Follow-up in 3 months with imaging to be completed prior; or sooner with any issues, concerns, and or questions. Orders: Orders AMB Urinalysis Automated Today Z13.9 - Encounter for screening, unspecified US renal BI Today N20.0 - Calculus of kidney Medications: Discontinued levofloxacin Discontinued Reason: Patient no longer taking 750 mg PO DAILY 7 days 7 tabs 0RF metronidazole Discontinued Reason: Patient no longer taking 500 mg PO Q8H 7 days 21 tabs 0RF metoclopramide HCl (Reglan) Discontinued Reason: Patient no longer taking 10 mg PO Q6H PRN 7 tabs 0RF nausea and vomiting ondansetron Discontinued Reason: Patient no longer taking 4 mg PO Q8H PRN 20 tabs 0RF nausea and vomiting oxycodone Partial Fill upon patient request. Discontinued Reason: Patient no longer taking 10 mg PO Q6H PRN 14 tabs 0RF pain prednisone Discontinued Reason: Patient no longer taking 20 mg PO DAILY 3 days 3 tabs 0RF tamsulosin Discontinued Reason: Patient no longer taking 0.4 mg PO DAILY 7 days 7 caps 0RF oxycodone Partial Fill upon patient request. Discontinued Reason: Patient no longer taking 5 mg PO Q6H PRN 10 tabs 0RF pain Patient Instructions: The patient had an opportunity to ask questions regarding the treatment plan. All questions were answered. Physical exam, labs, and imaging were discussed and reviewed in detail. As well as risks, benefits, and discussion of treatment choices. No major barriers to understanding were identified. The patient expressed understanding and agreement with the above treatment plan. The patient was made aware they should contact our office by phone for worsening of their current condition, the appearance of new symptoms, or with any questions or concerns. Compliance is encouraged with any medications and follow up testing that is ordered. It is a privilege to be allowed the opportunity to participate in? your urological care.? Again, if you have any questions or concerns If you have any questions or concerns please do not hesitate to contact me. The office is [phone]. This note is constructed using voice recognition software. While every effort has been made to ensure accuracy building architect errors may have been included. Yours sincerely, MAX Faust Coding Level of Care Code New Pt Level 3 (57049) Diagnoses Nephrolithiasis N20.0 Hydronephrosis concurrent with and due to calculi of kidney and ureter N13.2
== END 2024-07-24 16:02 | disposition home or self-care (01) ==
PROVIDERS: PCP Internal Medicine; Visit Provider Nurse Practitioner Family
DX: N20.0 Calculus of kidney (principal); N13.2 Hydronephrosis with renal and ureteral calculous obstruction; Z13.9 Encounter for screening, unspecified
CPT/HCPCS: 99203

== ENCOUNTER → 2024-07-24 15:27 | Outpatient (BNVA) | payer MEDICARE, MEDICAID, SELFPAY | PROVIDERS: PCP Internal Medicine; Visit Provider Nurse Practitioner Family | DX: N13.2 Hydronephrosis with renal and ureteral calculous obstruction (principal) | CPT/HCPCS: 81003 ==

== ENCOUNTER 2024-10-09 16:15 | Outpatient (REF) | payer OTHER, MEDICAID, SELFPAY | END 2024-10-09 16:16 | disposition home or self-care (01) | LOC: HO.US 16:15 | PROVIDERS: PCP Internal Medicine; Visit Provider Nurse Practitioner Family | DX: N20.0 Calculus of kidney (principal) | CPT/HCPCS: 76775 ==

== ENCOUNTER 2024-10-27 12:20 | Outpatient (AMB) | payer OTHER, MEDICAID, SELFPAY ==
--- NOTE | 2024-10-27 12:55 | MHC.OFFVIS ---
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 Mcfadden who was accompanied by his [id number] at today's office visit. He has a past medical history of asthma, hypertension, and diverticulitis. He presents to the office today for follow-up of his nephrolithiasis. Of note, patient was seen approximately 3 months ago at which time a renal ultrasound was ordered for further assessment evaluation of previously noted 5 mm proximal right ureteric calculus with mild hydronephrosis. Recent renal imaging 10/12 results reviewed with the patient today.... In discussion with the patient today he reports right-sided flank pain he had been previously experiencing has since subsided. He does endorse to drinking anywhere between 2-4 cans of Pepsi per day. We discussed importance of adequate hydration with water in relation to nephrolithiasis as well as overall health and well-being. He currently denies any bothersome urinary issues or concerns. We discussed surveillance monitoring versus surgical intervention of nephrolithiasis and risks and benefits of these interventions. We also discussed obtaining metabolic workup to include 24 hour urine collection as well as labs. In office urinalysis results reviewed with the patient today. PH 5.5. When asked he denies urinary urgency, urinary frequency, incontinence, nocturia, hematuria, dysuria, foul smelling urine, changes to urinary stream, flank pain, fever, and or chills. He is happy with his current voiding parameters. He otherwise offers no other issues or concerns at this time. [facility] Medical History Asthma HTN (hypertension) Diverticulitis Social History Alcohol intake: never Patient Tobacco Use Status: Tobacco use Unknown Review of Systems Const All systems reviewed & are unremarkable except as noted in HPI and below Physical Exam Const General: cooperative, comfortable, no acute distress, well developed, alert and awake Orientation/consciousness: patient oriented x3 HEENT Head: Yes normal to inspection, Yes normocephalic and Yes atraumatic Ears: hearing grossly normal bilaterally Eyes General: appearance normal, both eyes and all related structures Neck Neck: Yes normal visual inspection and Yes trachea midline Chest Chest palpation & inspection: normal inspection of the chest Resp Effort & Inspection: normal respiratory effort and able to speak in complete sentences Cardio Rate: regular rate GI Inspection: Yes normal to inspection General: Yes no CVA tenderness Back/Spine/Pelvis Back: no CVA tenderness Skin General skin exam: no rashes or lesions noted Neuro General: patient oriented x3 Extrem General: Yes normal to inspection Psych Appearance: grossly normal and well kempt Mental Status: mental status grossly normal Speech and movement: Normal speech and movement present and Clear speech present Affect: normal affect Attitude: cooperative Thought process: Normal thought process present Thought content: Normal thought content present Insight: Fair insight present (Psych) Judgement: Fair judgement present (Psych) Results AMB Urinalysis, Automated UA Leukoctes 0 Tomsá/uL Last Edit by QUE Johnson on 10/27/24 13:12 UA Nitrite Negative Last Edit by QUE Johnson on 10/27/24 13:12 UA Urobilinogen 0.2 mg/dL Last Edit by QUE Johnson on 10/27/24 13:12 UA Protein 15 mg/dL Last Edit by QUE Johnson on 10/27/24 13:12 UA pH 5.5 Last Edit by QUE Johnson on 10/27/24 13:12 UA Blood 0 Jose/uL Last Edit by QUE Johnson on 10/27/24 13:12 UA Specific [place] 1.030 Last Edit by QUE Johnson on 10/27/24 13:12 UA Ketone Negative Last Edit by QUE Johnson on 10/27/24 13:12 UA Bilirubin 0 mg/dL Last Edit by QUE Johnson on 10/27/24 13:12 UA Glucose 0 mg/dL Last Edit by QUE Johnson on 10/27/24 13:12 Results Reviewed Results Reviewed: Laboratory Last Values Urine pH (Auto) 5.5 10/27/24 13:12 Specific [place] (Auto) 1.030 10/27/24 13:12 Urine Protein (Auto) 15 mg/dL 10/27/24 13:12 Glucose (UA)(Auto) 0 mg/dL 10/27/24 13:12 Urine Ketones (Auto) Negative 10/27/24 13:12 Urine Blood (Auto) 0 Jose/uL 10/27/24 13:12 Urine Nitrite (Auto) Negative 10/27/24 13:12 Urine Bilirubin (Auto) 0 mg/dL 10/27/24 13:12 Urine Urobilinogen (Auto) 0.2 mg/dL 10/27/24 13:12 Leukocyte Esterase (Auto) 0 Tomás/uL 10/27/24 13:12 Assessment & Plan Assessment & Plan (1) Nephrolithiasis: Code(s): N20.0 - Calculus of kidney Category: Medical (2) Hydronephrosis concurrent with and due to calculi of kidney and ureter: Code(s): N13.2 - Hydronephrosis with renal and ureteral calculous obstruction Category: Medical Plan Recent renal imaging results reviewed with the patient today; as noted above. Patient currently denies any bothersome urinary issues or concerns. He reports be happy with current voiding parameters. We discussed further surgical intervention versus surveillance monitoring of nephrolithiasis and risks and benefits of these interventions. Discussed, educated, and stressed the importance of adequate hydration with water in relation to nephrolithiasis as well as overall health and well-being. We discussed further metabolic work up with 24 hour urine collection and labs. We discussed potential causes of nephrolithiasis. Will obtain KUB in 4-6 months. Follow-up in 4-6 months with imaging to be completed prior; or sooner with any issues, concerns, and or questions. Orders: Orders AMB Urinalysis Automated Today Z13.9 - Encounter for screening, unspecified Prostate Specific Antigen Today N40.0 - Benign prostatic hyperplasia without lower urinary tract symptoms XR KUB 4 Months N20.0 - Calculus of kidney Patient Instructions: The patient had an opportunity to ask questions regarding the treatment plan. All questions were answered. Physical exam, labs, and imaging were discussed and reviewed in detail. As well as risks, benefits, and discussion of treatment choices. No major barriers to understanding were identified. The patient expressed understanding and agreement with the above treatment plan. The patient was made aware they should contact our office by phone for worsening of their current condition, the appearance of new symptoms, or with any questions or concerns. Compliance is encouraged with any medications and follow up testing that is ordered. It is a privilege to be allowed the opportunity to participate in? your urological care.? Again, if you have any questions or concerns If you have any questions or concerns please do not hesitate to contact me. The office is [phone]. This note is constructed using voice recognition software. While every effort has been made to ensure accuracy veterinary medical officer errors may have been included. Yours sincerely, MAX Faust Coding Level of Care Code Est Pt Level 3 (22073) Complex EM visit Add On G2211 Diagnoses Nephrolithiasis N20.0 Hydronephrosis concurrent with and due to calculi of kidney and ureter N13.2
== END 2024-10-27 13:32 | disposition home or self-care (01) ==
PROVIDERS: PCP Internal Medicine; Visit Provider Nurse Practitioner Family
DX: Z13.9 Encounter for screening, unspecified (principal)

== ENCOUNTER → 2024-10-27 12:20 | Outpatient (BNVA) | payer OTHER, MEDICAID, SELFPAY | PROVIDERS: PCP Internal Medicine; Visit Provider Nurse Practitioner Family | DX: N13.2 Hydronephrosis with renal and ureteral calculous obstruction (principal) | CPT/HCPCS: 81003 ==

== ENCOUNTER 2025-05-07 10:50 | Outpatient (REF) | payer MEDICARE, SELFPAY ==
--- NOTE | ~2025-05-07 | XR_ITS ---
CLINICAL HISTORY: N20.0 - Calculus of kidney 1 view abdomen Comparison: None provided Findings: No pneumoperitoneum or pneumatosis. Ovoid calculus measuring up to 8 mm projects over the upper pole of the right kidney. No acute fractures. IMPRESSION: The bowel gas pattern is within normal limits. 8 mm ovoid calculus projecting over the upper pole of the right kidney noted. This document has been electronically signed by: Ang Desir MD on 05/08/2025 10:39:02
--- OUTSIDE RECORDS SUMMARY | 2025-05-07 12:25 | XMS_ITS | Clinical Summary ---
Author Organization [employer] Address [address] [place] [address] [address] [place] [address] Care Team Providers Care Certified Medical Technician Name Role Phone Unavailable Primary Care Provider Unavailabl e Social History Tobacco Use Types Packs/Day Years Used Date Smoking Tobacco: Never Assessed Sex and Gender Information Value Date Recorded Sex Assigned at Male 09/18/2022 10:24 AM EDT Legal Sex Male 10:24 AM EDT Gender Identity Choose not to disclose 10:24 AM EDT Sexual Orientation Choose not to disclose 2021 10:24 AM EDT Plan of Treatment Health Maintenance Due Date Last Done Comments CT Colonography 1953 Colonoscopy 1953 Colorectal Cancer Screening 1953 Depression Screening 1953 FIT DNA/Cologuard 1953 FIT 1953 FOBT 1953 Lipid Panel 1953 Sigmoidoscopy 1953 Alcohol/Substance Use Screening 1965 Tobacco Screening 1965 DTaP/Tdap/Td Vaccines (1 - Tdap) 1972 Pneumococcal Vaccine: 50+ Ye ars (1 of 1 - PCV) 2003 Zoster Vaccines (1 of 2) 2003 COVID-19 Vaccine ( - 2023-2 5 season) 2024 Influenza Vaccine (Season Ended) 2025 RSV Patients and Pa tients Aged 60 years or older (1 - 1-dose 75+ series) 2028 HIB Vaccines Aged Out No longer eligi ble based on patient's age to complete this topic HPV Vaccines Aged Out No longer eligi ble based on patient's age to complete this topic Hepatitis A Vaccines Aged Out No long er eligible based on patient's age to complete this topic Hepatitis B Vaccines Aged Out No long er eligible based on patient's age to complete this topic IPV Vaccines Aged Out No longer eligi ble based on patient's age to complete this topic Meningococcal B Vaccine Aged Out No l onger eligible based on patient's age to complete this topic Meningococcal Vaccine Aged Out No dot evan eligible based on patient's age to complete this topic RSV under 20 months Aged Out No longe r eligible based on patient's age to complete this topic Rotavirus Vaccines Aged Out No longer eligible based on patient's age to complete this topic
[2025-05-07 12:31] LABS: Prostate Specific Antigen 4.21 ng/mL (<0.05-4.0)
== END 2025-05-07 10:51 | disposition home or self-care (01) ==
LOC: HO.XRAY 10:50
PROVIDERS: PCP Internal Medicine; Visit Provider Nurse Practitioner Family
DX: N20.0 Calculus of kidney (principal); N40.0 Benign prostatic hyperplasia without lower urinary tract symptoms; Z12.5 Encounter for screening for malignant neoplasm of prostate
CPT/HCPCS: 36415; 74018; 84153

== ENCOUNTER → 2025-05-07 11:09 | Outpatient (BNV) | payer MEDICARE, SELFPAY | PROVIDERS: PCP Internal Medicine; Visit Provider Radiology Vascular & Interventional Radiology | DX: N20.0 Calculus of kidney (principal) | CPT/HCPCS: 74018 ==

== ENCOUNTER 2025-06-23 11:17 | Outpatient (REF) | payer MEDICARE, SELFPAY ==
--- NOTE | ~2025-06-23 | US_ITS ---
CLINICAL HISTORY: R39.12 - Poor urinary stream --- Additional Notes or Special Instructions: please try and measure prostate volume US Urinary Bladder Comparison: None Findings: The urinary bladder is smoothly distended, no calculus, mass or wall thickening, prevoid bladder volume 374 mL, ureteral jets are not convincingly seen, incomplete emptying with large postvoid volume 307 mL. Prostate is poorly visualized and obscured by rectal gas shadowing on the sagittal view, measures 4.7 cm in transverse dimension, the AP and CC dimension measurements could not be obtained reliably. IMPRESSION: Incomplete emptying of the urinary bladder with large postvoid volume. This document has been electronically signed by: Karoline Bello MD on 06/23/2025 14:14:17
--- OUTSIDE RECORDS SUMMARY | 2025-06-23 12:03 | XMS_ITS | Encounter Summary ---
Author Organization [facility] Address [address] [place] [address] Care Team Providers Care Family Preservation Caseworker Name Role Phone Name, Osvaldo MCKENZIE Primary Care Provider UnavailMoose Longo MD Primary Care Provider [phone] Ashley King MD Primary Care Prov ider Rip Shelton MD Unavailable Amberva Luis Verdugo Unavailable UnavailNasir Aguilera Unavailable Unavailable Shelbi Gutierrez [facility]- Unavailable Unavailable Encounter Details Date Type Department Care Team Description 02/23/2014 Him Tech Report Medical Records [address] [place] [id number] Sandro Quintanilla PA-C Social History Tobacco Use Types Packs/Day Years Used Date Smoking Tobacco: Never Smokeless Tobacco: Never Alcohol Use Standard Drinks/Week Comments Yes 0 (1 standard drink = 0.6 oz pur e alcohol) Sex Assigned at Date Recorded Not on file Job Start Date Occupation Industry Not on file Not on file Not on file documented as of this encounter Plan of Treatment Not on file documented as of this encounter Visit Diagnoses Not on filedocumented in this encounter Care Teams Family Preservation Caseworker Relationship Specialty Start Date End Date Name, MD Osvaldo PCP - General 06/23/11 12/15/15 Moose Bello MD [address] [place] [address] PCP - General Internal Medicine 12/16/15 10/30/22 Ashley King MD [address] [place] [phone] PCP - General Internal Medicine 10/31/22 Rip Shelton MD [address] [place] [address] Specialist Neurology 06/28/23 Luis Lundberg [address] [place] [id number] Specialist Ophthalmology 06/28/23 Nasir Davis [address] [place] [id number] Specialist ORTHOPEDIC SURGERY 06/28/23 Shelbi Gutierrez, MANAGER CLEANING-[address] [address] Specialist Urology 07/15/24 documented as of this encounter
--- OUTSIDE RECORDS SUMMARY | 2025-06-23 12:03 | XMS_ITS ---
Author Name [facility] Organization Unknown Care Team Organization Name Specialty Phone Email Start Date End Da te [facility] Eugenia Primary Care 04/27/2023 07/07/2024 [facility] Ashley King Primary Care 03/26/2023 07/07/2024 [facility] KAITLIN GUSMAN Primary Care 09/26/20222023
--- OUTSIDE RECORDS SUMMARY | 2025-06-23 12:03 | XMS_ITS | Clinical Summary ---
Author Organization [employer] Address [address] [place] [address] [address] [place] [address] Care Team Providers Care Tax Credit Leasing Consultant Name Role Phone Unavailable Primary Care Provider [...] - 2023-2 5 season) 2024 Influenza Vaccine (#1) 2025 RSV Patients and Pa tients Aged [...]
== END 2025-06-23 11:18 | disposition home or self-care (01) ==
LOC: HO.US 11:17
PROVIDERS: PCP Internal Medicine; Visit Provider Nurse Practitioner Family
DX: R39.12 Poor urinary stream (principal)
CPT/HCPCS: 76857

== ENCOUNTER → 2025-06-23 11:19 | Outpatient (BNV) | payer MEDICARE, SELFPAY | PROVIDERS: PCP Internal Medicine; Visit Provider Radiology Diagnostic Radiology | DX: R39.12 Poor urinary stream (principal) | CPT/HCPCS: 76857 ==

== ENCOUNTER 2025-08-21 09:45 | Outpatient (AMB) | payer MEDICARE, SELFPAY ==
--- NOTE | 2025-08-21 09:58 | MHC.OFFVIS ---
Intake Visit Reasons: follow up labs/ KUB Intake Note: patient presents today for: follow up labs/KUB urology medications: none blood thinners: none labs done 05/07/25: PSA 4.21 XRAY done: 05/08/25 Metal Control Coordinator Required: Yes Metal Control Coordinator Services: Metal Control Coordinator Present Accompanied by: Spouse Allergies aspirin (ASA) Allergy (Verified 08/21/25 09:59) Rash naproxen (From Aleve) Allergy (Verified 08/21/25 09:59) Rash HPI Comments Details: Sherman is a pleasant Micronesian-speaking male. He is a patient of Dr. Mcfadden. He is seen for the following urologic conditions - nephrolithiasis - loin tract symptoms Bladder ultrasound Thickened bladder wall Incomplete bladder emptying Large prostate Nephrolithiasis Right kidney with nonobstructing stone Drink dark soda Low pH Previously instructed to complete metabolic workup and he failed to turn up at follow-up appointment [facility] Medical History Asthma HTN (hypertension) Diverticulitis Social History Alcohol intake: never Patient Tobacco Use Status: Tobacco use Unknown Review of Systems Const Denies chills and Denies fever(s) Card Reports no additional complaints and Denies syncope Resp Denies cough GI Denies abdominal pain and Denies heartburn Reports as per HPI and Denies change in libido Neuro Denies syncope Psych Denies change in libido Endo Denies change in libido Physical Exam Const General: cooperative, healthy appearing, comfortable and no acute distress Orientation/consciousness: patient oriented x3 HEENT Face and sinus: Yes normal facial exam Mouth: moist mucous membranes Neck Neck: Yes normal visual inspection, Yes full ROM and Yes trachea midline Chest Chest palpation & inspection: normal inspection of the chest Resp Effort & Inspection: normal respiratory effort, able to speak in complete sentences and no respiratory distress GI Inspection: Yes normal to inspection Back/Spine/Pelvis Cervical Spine: normal cervical lordosis Thoracic/Lumbar Spine: thoracic and lumbar spine normal to inspection Skin General skin exam: no rashes or lesions noted Neuro General: patient oriented x3, gait normal, tone normal and moves all extremities Extrem General: Yes normal to inspection and Yes capillary refill normal Assessment & Plan Assessment & Plan (1) Erectile dysfunction: Code(s): N52.9 - Male erectile dysfunction, unspecified Category: Medical (2) Bladder outlet obstruction: Code(s): N32.0 - Bladder-neck obstruction Category: Medical Plan Three-month follow-up uroflow office Medications: New finasteride 5 mg PO DAILY 90 tabs 1RF 90 days N32.0 - Bladder-neck obstruction sildenafil administer 60 minutes before intended activity [id number] [facility] GroupGDRX Member [id number] 100 mg PO 1XD PRN 30 tabs 0RF sexual activity 30 days N52.9 - Male erectile dysfunction, unspecified tamsulosin (Flomax) 0.4 mg PO BEDTIME 30 tabs 2RF 30 days N32.0 - Bladder-neck obstruction Patient Instructions: This note is constructed using voice recognition software. While every effort has been made to ensure accuracy line clearance foreman errors may have been included. Imaging studies, laboratory and physical exam results were discussed and reviewed in detail. No major barriers to patient understanding were identified. An opportunity to ask questions regarding the treatment plan was provided. All questions were answered. The patient expressed understanding and agreement with the above treatment plan. The patient is aware they should contact our office by phone for worsening of their current condition or the appearance of new urologic symptoms. Compliance is encouraged with any medications and followup testing that is ordered. It is a privilege to participate in the urologic care of your patient. If you have any questions or concerns regarding treatment for the above conditions, or other urologic issues, please do not hesitate to contact me. The office telephone contact is [phone]. Sincerely, Dr Zacarias Velazquez MD, [facility] - Urology Compassionate Specialist Care for the Genitourinary System Coding Level of Care Code Est Pt Level 4 (69086) Complex EM visit Add On G2211 Diagnoses Erectile dysfunction N52.9 Bladder outlet obstruction N32.0
--- OUTSIDE RECORDS SUMMARY | 2025-08-21 10:20 | XMS_ITS | Clinical Summary ---
Author Organization 175 [facility] Address [address] [place] [address] Phone Care Team Providers Care Dental Office Manager Name Role Phone Ashley Lew MD Primary Care Prov ider Allergies Active Allergy Reactions Criticality Noted Date Comments Ibuprofen Itching 09/06/2011 Naproxen Sodium Itching 09/06/2011 Pseudoephedrine-Ibuprofen 09/22/2024 Medications budesonide-formo teroL (SYMBICORT) 160-4.5 mcg/actuation inhaler Inhale 2 puffs by mouth 2 (two) times a day. 4 Active albuterol HFA (PROAIR HFA ; PROVENTIL HFA ; VENTOLIN HFA) 90 mcg/actuation inhaler Inhale 2 puffs by mouth every 6 (six) hours if needed for wheezing or shortness of breath. 4 Active magnesium 200 mg tablet Take 1 tablet by mouth 1 (one) time each day. Active CYANOCOBALAMIN, VITAMIN B-12, ORAL Take 1 tablet by mouth 1 (one) time each day. Active acetaminophen (TYLENOL 8 HOUR) 650 mg 8 hr tablet Take 1 tablet (650 mg total) by mouth every 8 (eight) hours if needed. Active omega-3 acid ethyl esters (LOVAZA) 1 gram capsule Take 1 capsule (1 g total) by mouth 1 (one) time each day. Active hydrocortisone (ANUSOL-HC) 2.5 % rectal cream APPLY 3 G TOPICALLY 2 TIMES DAILY. 100 g 4 Active budesonide-formo teroL (Symbicort) 160-4.5 mcg/actuation inhalerIndicatio ns:Moderate persistent asthma, unspecified whether complicated Inhale 2 puffs by mouth 2 (two) times a day. Rinse mouth with water after use to reduce aftertaste and incidence of candidiasis. Do not swallow. 1 each 12 4 09/22/20 25 Active lisinopriL (PRINIVIL,ZESTRI L) 10 mg tablet TAKE 1 TABLET BY MOUTH EVERY DAY 90 tablet 1 5 Active Active Problems Problem Noted Date Diagnosed Date History of hernia repair 07/10/2024 Overview (07/10/2024): Laparoscopic R on 06/2014 Type 2 diabetes mellitus wit hout complication, without long-term current use of insulin ([facility] V24, [facility] V28) 06/28/2023 Assessment & Plan (06/18/2025 10:57 AM EDT): Last A1c was 6.6. Well controlled on a diet. Healthy lifestyle modifications as above. Will recheck A1C in 3 months. Orders: Microalbumin creatinine urine ratio; Future Hemoglobin A1c; Future Ambulatory referral to Podiatry; Future Comprehensive metabolic panel; Future Hemoglobin A1c; Future Lipid panel with reflex to direct LDL; Future Assessment & Plan (12/15/2024 12:04 PM EST): Last A1c was 6.3. Healthy lifestyle modifications as above. Will recheck A1C before his next visit. Orders: Comprehensive metabolic panel; Future Lipid panel with reflex to direct LDL; Future Hemoglobin A1c; Future Hypertriglyceridemia 05/16/2021 Assessment & Plan (06/18/2025 10:57 AM EDT): Last lipid profile LDL is 74, triglycerides 144. Encouraged to continue taking omega-3 every day. Regular exercise as above. Assessment & Plan (12/15/2024 12:04 PM EST): Last lipid profile checked in June, LDL is 70, triglycerides 167. Encouraged to continue taking omega-3 every day. Regular exercise as above. Will check a lipid profile and CMP before his next visit. Orders: Comprehensive metabolic panel; Future Lipid panel with reflex to direct LDL; Future Elevated glucose 12/05/2017 Umbilical hernia 01/05/2017 S/P knee replacement 03/26/2014 Overview (07/10/2024): 2012 Left sided Obesity (BMI 30-39.9) 10/11/2013 HTN (hypertension) 09/06/2011 Assessment & Plan (06/18/2025 10:57 AM EDT): Well controlled. Today 110/68. Patient currently on lisinopril 10 mg a day. He is encouraged to follow a low-salt diet and exercise regularly. We will continue same medication. Assessment & Plan (12/15/2024 2:45 PM EST): well controlled. Today 124/75. Patient currently on lisinopril 10 mg a day. He is encouraged to follow a low-salt diet and exercise regularly. We will continue same medication. Orders: Comprehensive metabolic panel; Future Lipid panel with reflex to direct LDL; Future Diverticulosis 09/06/2011 DJD (degenerative joint disease) of knee 011 Overview (07/10/2024): Hx TKR on left 2012 Asthma 09/06/2011 Encounters Date Type Department Care Team Description 07/29/2025 10:45 AM EDT Office Visit Pulmonology [facility] [address] [facility] [address] [place] [phone] Suasn Kelley MD OG (obstructive sleep apnea) (Primary Dx); Moderate persistent asthma, unspecified whether complicated 07/24/2025 10:36 AM EDT - 07/24/2025 11:59 PM EDT Hospital Encounter [facility] Xray [address] [place] [phone] Exacerbation of asthma, unspecified asthma severity, unspecified whether persistent Discharge Disposition: Home or Self Care 06/18/2025 10:00 AM EDT Office Visit Adult Medicine [facility] [address] [place] [phone] Ashley Schneider MD Type 2 diabetes mellitus without complication, without long-term current use of insulin ([facility] V24, [facility] V28) (Primary Dx); Primary hypertension; Hypertriglyceridemia; Kidney stone; Need for tetanus, diphtheria, and acellular pertussis (Tdap) vaccine from Last 3 Months Immunizations Immunization Administration Dates Next Due Influenza trivalent, 0.5mL ( Fluzone High-dose) 65yo and older 01/05/2017,09/08/2015,08/20/2013,08/09,09/06/2011 Influenza trivalent, with pr eservative (Fluzone; Afluria) 6mo and older 08/18/2010,09/07/2008,11/22/2007 Pfizer SARS-CoV-2 COVID-19, mRNA, LNP-S, preservative free 02/14/2021 Pneumococcal conjugate 20 va lent (Prevnar 20, PCV 20) 2mo and older 12/12/2023 Pneumococcal polysaccharide 23 valent (Pneumovax 23) 2yo and older 03/26/2014 Td Tetanus diptheria (Tdvax) 7yo and older 12/29/2008 Tdap Tetanus diptheria acell ular pertussis (Boostrix; Adacel) 7yo and older 06/18/2025,08/20/2013 Surgical History Surgery Date Site/Laterality Comments TONSILLECTOMY PROCEDURE: HISTORICAL TONSILLECTOMY; COMMENT: as a child OTHER SURGICAL HISTORY PROCEDURE: MD ARTHRS KNEE W/MENISCECTOMY MED&LAT W/SHAVING; COMMENT: 2002 TOTAL KNEE ARTHROPLASTY 08/19/2013 Left PROCEDURE: HISTORICAL TOTAL KNEE REPLACE; COMMENT: Dr Nichols COLONOSCOPY 11/19/2002 PROCEDURE: HISTORICAL COLONOSCOPY; COMMENT: [facility] COLONOSCOPY 11/19/2013 PROCEDURE: MD COLONOSCOPY FLX DX W/COLLJ SPEC WHEN PFRMD; COMMENT: diverticulosis. TOTAL KNEE ARTHROPLASTY 02/2023 Right PROCEDURE: HISTORICAL TOTAL KNEE REPLACE Medical History Medical History Date Comments Obesity (BMI 30-39.9) 10/11/2013 DX:Obesity (BMI 30-39.9) Umbilical hernia 01/05/2017 DX:Umbilical he rnia Fracture, clavicle closed, shaft 1988 DX:Fracture, clavicle closed, shaft Hypertension Asthma Arthritis Anxiety Family History Medical History Relation Name Comments Lung cancer Father Relation Name Status Comments Daughter 1 Alive Daughter 2 Alive Father smoker and canc er Mother Sister Alive renal CA Social History Tobacco Use Types Packs/Day Years Used Date Smoking Tobacco: Never Passive Smoke Exposure: Never Smokeless Tobacco: Never Tobacco Cessation:Counseling Given: Not Answered Alcohol Use Standard Drinks/Week Comments No 0 (1 standard drink = 0.6 oz pur e alcohol) Sex and Gender Information Value Date Recorded Sex Assigned at Not on file Legal Sex Male 12:48 PM EST Gender Identity Not on file Sexual Orientation Not on file Obstetrics History Last Filed Vital Signs Vital Sign Reading Time Taken Comments Blood Pressure 104/61 07/29/2025 10:44 AM EDT Pulse 72 07/29/2025 10:44 AM EDT Temperature 36.3 C (97.4 F) 07/29/2025 10:44 AM EDT Respiratory Rate 16 06/18/2025 10:26 AM EDT Oxygen Saturation 98% 07/29/2025 10:44 AM EDT Inhaled Oxygen Concentration - - Weight 97.5 kg (215 lb) 07/29/2025 10:44 AM EDT Height 172.7 cm (5' 8 ) 06/18/2025 10:26 AM EDT Body Mass Index 32.69 06/18/2025 10:26 AM EDT Plan of Treatment Upcoming Encounters Date Type Department Care Team (Late st Contact Info) Description 12/21/2025 11:00 AM EST Office Visit Adult Medicine [facility] [address] [place] [address] Ashley Lew MD [address] [place] [address] 01/27/2026 9:30 AM EDT Office Visit Pulmonology [facility] [address] [phone] Susan Kelley MD [address] [address] Health Maintenance Due Date Last Done Comments Diabetes: Annual Foot Exam 1965 Diabetes: Annual Retina Eye Exam 1965 RSV Immunization Adult Patients (1 - Risk 60-74 years 1-dose series) 2013 Social Influencers of Health Screening 10/28/2022 Zoster Vaccines (2 of 2) 10/10/2024 08/15/2024 Diabetes: Annual Urine Albumin-Creatinine Ratio (uACR) 01/01/2025 Diabetes: Blood Sugar Control Test (HGBA1C) 07/01/2025 01/01/2025, 06/28/2023 COVID-19 Vaccine (3 - season) 2025 02/25/2021, 02/14/2021 Influenza Vaccine (#1) 2025 , 01/05/2017, 09/08/2015, Additional history exists Falls Risk Assessment 12/15/2025 12/15/2024, 024 Medicare Annual Wellness Visit 12/15/2025 12/15/2024 Diabetes: Annual GFR (Glomerular Filtration Rate) 06/08/2026 06/08/2025, 01/02/2025, 01/01/2025, Additional history exists Hypertension/CHF/CAD Annual BMP Blood Test 06/08/2026 06/08/2025, 01/02/2025, 01/01/2025, Additional history exists Cholesterol Screening (Lipid Panel) 06/08/2030 06/08/2025, 06/28/2023 Colorectal Cancer Screening: Colonoscopy 07/27/2031 07/27/2021 DTaP,Tdap,and Td Vaccines (4 - Td or Tdap) 06/18/2035 06/18/2025, 08/20/2013, 12/29/2008 Hepatitis C Screening Completed 06/17/2014 Pneumococcal Vaccine: 50+ Years Completed 12/12/2023, 03/26/2014 Abdominal Aortic Aneurysm (AAA) Screen Discontinued 10/09/2024 Depression Screening Completed 12/15/2024 HIB Vaccines Aged Out No longer eligi [...] on patient's age to complete this topic MMR Vaccines Aged Out No longer eligi ble based on patient's age to complete this topic Meningococcal ACWY Vaccine Aged Out N o longer eligible based on patient's age to complete this topic Meningococcal B Vaccine Aged Out No l onger eligible based on patient's age to complete this topic RSV Immunization Patients Under 20 months Aged Out No longer eligible based on patient's age to complete this topic Varicella Vaccines Aged Out No longer eligible based on patient's age to complete this topic Procedures Procedure Name Priority Date/Time Associated Diagnosis Comments XR CHEST 2 VIEWS Routine 07/24/2025 10:4 5 AM EDT Exacerbation of asthma, unspecified asthma severity, unspecified whether persistent COMPREHENSIVE METABOLIC PANEL Routine 06/08/2025 9:36 AM EDT Primary hypertension Hypertriglyceridemi a Prediabetes LIPID PANEL WITH REFLEX TO DIRECT LDL Routine 06/08/2025 9:36 AM EDT Primary hypertension Hypertriglyceridemi a Prediabetes HEMOGLOBIN A1C Routine 01/01/2025 9:05 AM EST Prediabetes US RETROPERITONEAL LIMITED Routine 10/09/2024 3:18 PM EST HM HEPATITIS C SCREENING Routine 06/17/2014 from Last 3 Months or Most Recently Relevant to Health Maintenance Results * XR Chest 2 Views (07/24/2025 10:45 AM EDT) Anatomical Region Laterality Modality Body Radiographic Nury ging 07/24/2025 10:4 9 AM EDT Impressions 07/24/2025 10:50 AM EDT No acute pulmonary disease. Resolved left lower lobe atelectasis and/or infiltrate since 01/01/2025. Code 13316 -------- FINAL REPORT -------- Dictated By: Jarrod Bunch Dictated Date: 07/24/2025 10:49 ET Assigned Physician: Jarrod Bunch Reviewed and Electronically Signed By: Jarrod Bunch Signed Date: 07/24/2025 10:50 ET Workstation ID: [id number] Transcribed By: Self Edit Transcribed Date: 07/24/2025 10:49 ET Narrative 07/24/2025 10:50 AM EDT HISTORY: The patient is a 70-year-old male with dyspnea. FINDINGS: PA and lateral radiographs the chest demonstrate normal appearance of the bony structures. The cardiac and mediastinal contours are within normal limits. The lungs and costophrenic angles are clear. The density in the left lower lobe consistent with atelectasis and/or infiltrate seen on the prior study performed 01/01/2025 has resolved. Procedure Note Jarrod Bunch MD - 07/24/2025 HISTORY: The patient is a 70-year-old male with dyspnea. FINDINGS: PA and lateral radiographs the chest demonstrate normalappearance of the bony structures. The cardiac and mediastinal contoursare within normal limits. The lungs and costophrenic angles are clear.The density in the left lower lobe consistent with atelectasis and/orinfiltrate seen on the prior study performed 01/01/2025 has resolved. IMPRESSION: No acute pulmonary disease. Resolved left lower lobe atelectasis and/orinfiltrate since 01/01/2025. Code 15853 -------- FINAL REPORT -------- Dictated By: Jarrod Bunch Dictated Date: 07/24/2025 10:49 ET Assigned Physician: Jarrod Bunch Reviewed and Electronically Signed By: Jarrod Bunch Signed Date: 07/24/2025 10:50 ET Workstation ID: [id number] Transcribed By: Self Edit Transcribed Date: 07/24/2025 10:49 ET Susan Kelley MD IMG XR PROCEDURES Final Result * Lipid panel with reflex to direct LDL (06/08/2025 9:36 AM EDT) Cholesterol 148 0 - 200 mg/dL LAB CHEMISTRY METHOD 06/08/2025 2:17 PM EDT [facility] Triglycerides 144 0 - 150 mg/dL LAB CHEMISTRY METHOD 06/08/2025 2:17 PM EDT [facility] HDL 45 >=40 mg/dL LAB CHEMISTRY METHOD 06/08/2025 2:17 PM EDT [facility] LDL Calculated 74 0 - 100 mg/dL LAB CHEMISTRY METHOD 06/08/2025 2:17 PM EDT [facility] VLDL Cholesterol Jordan 28.8 mg/dL LAB CHEMISTRY METHOD 06/08/2025 2:17 PM EDT [facility] Non HDL Chol. (LDL+VLDL) 103 <145 mg/dL LAB CHEMISTRY METHOD 06/08/2025 2:17 PM EDT [facility] Chol/HDL Ratio 3.3 0.0 - 4.4 LAB CHEMISTRY METHOD 06/08/2025 2:17 PM EDT [facility] Blood Venous blood specimen / Unknown Venipuncture / Unknown 06/08/2025 9:36 AM EDT 06/08/2025 9:36 AM EDT us Ashley Lew MD LAB BLOOD ORDERABL ES Final Result [facility] [address] [place] [address], [place] [phone] * (ABNORMAL) Comprehensive metabolic panel (06/08/2025 9:36 AM EDT) Sodium 139 133 - 145 mmol/L LAB CHEMISTRY METHOD 06/08/2025 2:17 PM [facility] Potassium 4.3 3.5 - 5.5 mmol/L LAB CHEMISTRY METHOD 06/08/2025 2:17 PM [facility] Chloride 106 96 - 110 mmol/L LAB CHEMISTRY METHOD 06/08/2025 2:17 PM [facility] CO2 27 21 - 32 mmol/L LAB CHEMISTRY METHOD 06/08/2025 2:17 PM [facility] Anion Gap 6 3 - 11 LAB CHEMISTRY METHOD 06/08/2025 2:17 PM [facility] Glucose 123(H) 70 - 100 mg/dL LAB CHEMISTRY METHOD 06/08/2025 2:17 PM [facility] BUN 17 5 - 25 mg/dL LAB CHEMISTRY METHOD 06/08/2025 2:17 PM [facility] Creatinine 0.86 0.70 - 1.30 mg/dL LAB CHEMISTRY METHOD 06/08/2025 2:17 PM [facility] eGFR 92 >=60 mL/min/1. 73m2 LAB CHEMISTRY METHOD 06/08/2025 2:17 PM [facility] Comment:Calculation based on the Chronic Kidney Disease Epidemiology Collaboration (CKD-EPI) equation refit without adjustment for race. BUN/Creatinine Ratio 19.8 LAB CHEMISTRY METHOD 06/08/2025 2:17 PM [facility] Calcium 9.4 8.5 - 10.5 mg/dL LAB CHEMISTRY METHOD 06/08/2025 2:17 PM [facility] AST (SGOT) 16 10 - 42 unit/L LAB CHEMISTRY METHOD 06/08/2025 2:17 PM [facility] ALT (SGPT) 33 10 - 60 unit/L LAB CHEMISTRY METHOD 06/08/2025 2:17 PM [facility] Alkaline Phosphatase 70 42 - 121 unit/L LAB CHEMISTRY METHOD 06/08/2025 2:17 PM [facility] Total Protein 7.2 6.0 - 8.0 g/dL LAB CHEMISTRY METHOD 06/08/2025 2:17 PM [facility] Albumin 3.6 3.2 - 5.0 g/dL LAB CHEMISTRY METHOD 06/08/2025 2:17 PM [facility] Total Bilirubin 0.5 0.0 - 1.4 mg/dL LAB CHEMISTRY METHOD 06/08/2025 2:17 PM [facility] Blood Venous blood specimen / Unknown Venipuncture / Unknown 06/08/2025 9:36 AM EDT 06/08/2025 9:36 AM EDT Ashley Lew MD LAB BLOOD ORDERABL ES Final Result Performing Organization Address [facility]/ZIP Co de Phone Number [facility] [address] [place] [address], * (ABNORMAL) Hemoglobin A1c (01/01/2025 9:05 AM EST) Hemoglobin A1C 6.6(H) <6.5 % LAB CHEMISTRY METHOD 01/01/2025 12:35 PM EST [facility] Mean Bld Glu Estim. 143 mg/dL LAB CHEMISTRY METHOD 01/01/2025 12:35 PM EST [facility] Blood Venous blood specimen / Unknown Venipuncture / Unknown 01/01/2025 9:05 AM EST 01/01/2025 9:19 AM EST Ashley Lew MD LAB BLOOD ORDERABL ES Final Result Performing Organization Address [facility]/ZIP Co de Phone Number [facility] [address] [place] [address], [place] [phone] * US Retroperitoneal Limited (10/09/2024 3:18 PM EST) Anatomical Region Laterality Modality Body Ultrasound Historical Provider IMG US PROCEDURES Final R esult * Hepatitis C Screening (06/17/2014) Hepatitis C Screening abstracted Historical Provider HEALTH MAINTENANCE Final Result from Last 3 Months or Most Recently Relevant to Health Maintenance Insurance [employer] MED[employer]ARE [employer]AGE Advance Directives Documents on File Type Date Recorded Patient Health And Wellness Coordinator Expl anation Advance Directives and Living Will 12/16/2024 8:00 AM healthcare proxy Care Teams Dental Office Manager Relationship Specialty Start Date End Date Ashley Lew MD [address] [place] [phone] PCP - General Internal Medicine 09/22/24
--- OUTSIDE RECORDS SUMMARY | 2025-08-21 10:20 | XMS_ITS | Clinical Summary ---
Author Organization [employer] Address [address] [place] [address] [address] [place] [address] Care Team Providers Care Food Server Name Role Phone Unavailable Primary Care Provider [...] COVID-19 Vaccine ( - 2023-2 5 season) 2025 Influenza Vaccine (#1) 2025 RSV Patients and [...]
--- OUTSIDE RECORDS SUMMARY | 2025-08-21 10:20 | XMS_ITS | Encounter Summary ---
Author Organization [employer] Address [address] [facility] [address] [place] [address] Care Team Providers Care Archives Technician Name Role Phone Unavailable Primary Care Provider Unavailabl e Encounter Details Date Type Department Care Team (Latest Contact Info) Description 06/26/2022 Abstract [facility] CONVERSIONS Dental, Provider, DDS Social History Tobacco Use Types Packs/Day Years Used Date Smoking Tobacco: Never Assessed Sex and Gender Information Value Date Recorded Sex Assigned at Male 09/18/2022 10:24 AM EDT Legal Sex Male 10:24 AM EDT Gender Identity Choose not to disclose 10:24 AM EDT Sexual Orientation Choose not to disclose 2021 10:24 AM EDT documented as of this encounter Plan of Treatment Not on file documented as of this encounter Visit Diagnoses Not on filedocumented in this encounter
== END 2025-08-21 10:22 | disposition home or self-care (01) ==
LOC: HO.HUSH 09:45
PROVIDERS: PCP Internal Medicine; Visit Provider Urology
DX: N52.9 Male erectile dysfunction, unspecified (principal); N32.0 Bladder-neck obstruction
CPT/HCPCS: 99214; G2211

== ENCOUNTER → 2025-08-21 09:45 | Outpatient (BNVA) | payer MEDICARE, SELFPAY | PROVIDERS: PCP Internal Medicine; Visit Provider Urology | DX: N32.0 Bladder-neck obstruction (principal); N52.9 Male erectile dysfunction, unspecified | CPT/HCPCS: 99212 ==